=== PATIENT | male | born 1945 | race Two or more races ===

== ENCOUNTER → 2024-12-04 | Outpatient (CLI) | payer MEDICARE, MEDICAID, SELFPAY ==
--- NOTE | 2024-12-04 14:00 | XR_ITS ---
Examination: Abdomen sonogram, complete Date and time of exam: December 04, 2024 1416 hours INDICATIONS: Abdominal pain beginning one month ago. Technique: Multiple real-time grayscale transabdominal sonographic images of the abdomen have been obtained. Findings: 3 mm gallbladder polyp No gallstones The gallbladder is contracted Gallbladder wall 2 mm Common bile duct 0.4 cm Pancreatic head 2.0 cm Aorta not enlarged Liver 13.9 cm smooth contour no focal liver lesions Normal hepatopedal portal venous flow Patent IVC Right kidney 9.9 x 4.9 x 5.8 cm cortex 1.2 cm Left kidney 9.5 x 4.3 x 4.2 cm renal cortex 1.1 cm Mild renal parenchymal scar formation No hydronephrosis Spleen 7.5 cm IMPRESSION: 3 mm gallbladder polyp Contracted gallbladder, recommend repeating the gallbladder portion of this study with fasting Liver normal size no focal liver lesions Mild bilateral renal parenchymal scar formation
== END | disposition home or self-care (01) ==
PROVIDERS: PCP Nurse Practitioner Family; Referring Provider Nurse Practitioner Family; Visit Provider Nurse Practitioner Family
DX: K82.4 Cholesterolosis of gallbladder (principal); K82.8 Other specified diseases of gallbladder; N28.89 Other specified disorders of kidney and ureter
CPT/HCPCS: 76700

== ENCOUNTER 2024-12-24 08:55 | Outpatient (AMB) | payer MEDICARE, MEDICAID, SELFPAY ==
[2024-12-24 09:06] VITALS: BP 124/75; PULSE 69; RESP 18; TEMP 36.7; O2SAT 98; BMI 22.3
--- NOTE | 2024-12-24 09:06 | PD.GSCLVISIT ---
Vital Signs - [facility] 12/24/24 09:06 Height 1.7 m Height Method Stated Weight 64.609 kg Weight Measurement Method Standing Scale BMI 22.3 BP 124/75 Blood Pressure Source Automatic Cuff Blood Pressure Location Left Upper Arm Position Sitting Respiration 18 Pulse 69 Pulse Source Monitor Temp 98.1 F Temp Source Temporal Artery Scan Pulse Oximetry (%) 98 Oxygen Delivery Method Room Air Med/Allergies Allergies & Medications Allergies No Known Allergies Allergy (Verified 12/24/24 09:07) Medication Reconciliation lisinopril 10 mg tablet 10 mg PO QDAY 01/16/24 [History Confirmed 12/24/24] MA Intake Visit Data Collection New Patient or Established: New Patient (never been to [facility]) Seen by Clinical Staff ONLY (RN/MA): No Reason for Visit:: REFERRAL GALLBLADDER Pain Present Currently: No Plug Making Operator Required: Yes PCP or OBGYN visit in last 3 months: Yes Hx Now: No Do You Feel Safe at Home: Yes Authorities Contacted: N/A Smoking Status Smoking Status: Never smoker Immunization / Flu Flu Vaccine in the Last 12 Months: Yes Flu Vaccine Exclusion Criteria: Already Received Past Medical History Social History SMOKING STATUS: Smoking status: Never smoker HPI HPI Narrative 79M referred for gallbladder polyp. Pt states he has had two episodes of severe abdominal pain since Nov; one episode before eating and one after drinking coffee, with severe lower abdominal pain that then radiated upward. He denies any associated nausea, fever or diarrhea. Because the pain was so severe he went to ER and underwent US with findings of a 3mm polyp, no gallstones PMH: HTN, BPH PSHx: Back and hip surgery Meds: No antiplt and anticoagulation Allergies: NKDA Social hx: Nonsmoker Family hx: No known malignancy ROS Review of Systems Systems Reviewed: All systems reviewed, normal except as documented Objective/Exam General General Appearance: alert, cooperative and well groomed Resp Respiratory exam: Absent respiratory distress Abdominal Abdominal exam: Present soft; Absent distention or tenderness Results Abdominal US reviewed: no gallstones, 3mm polyp Assessment & Plan Diagnosis / Problem List (1) Gallbladder polyp: Status: Acute Assessment & Plan: 79M with HTN, BPH presenting with symptomatic gallbladder polyp. I explained that although he does not have stones the polyp could cause symptoms similar to biliary colic, which is consistent with the symptoms he experienced. I explained benefits/risks of surgery including need for conversion to open, bleeding, infection, injury to nearby structures/biliary leak requiring further procedures or surgery which could not be performed here. Pt expressed understanding and agrees to proceed Advanced Care Planning Advance care planning discussed with:: other Office Procedures GNS Level of Care Nursing/Assessment Patient Status: Initial/New Patient Nursing Assessment/Reassesment: Medication Reconciliation, Update PMH in EMR and Vital Signs Coordination of Care: Complex Care and Chronic Disease 1-5, Consent,records obtained, informed consent, Education Simp Pt/Fam, Results/Orders obtained and Staff clarify orders Special Needs: Language special needs New Patient Charge New Patient Point Assignment: [id number] New Patient Point Charge: PRINTER'S DEVIL Level 3 ([id number]) Patient Portal Questionaires Social History Tobacco History Smoking Status: Never smoker Domestic Abuse History Do You Feel Safe at Home: Yes Review of Systems Report any current symptoms Only answer those that you have currently: Past Medical History Past Medical History Have you ever been diagnosed with any of the following:
== END 2024-12-24 09:27 | disposition home or self-care (01) ==
LOC: HODSRG 08:55
PROVIDERS: PCP Nurse Practitioner Family; Referring Provider Nurse Practitioner Family; Supervising Provider Surgery; Visit Provider Surgery
DX: K82.4 Cholesterolosis of gallbladder (principal)
CPT/HCPCS: 99203; G0463

== ENCOUNTER → 2025-01-04 | Outpatient (BNVA) | payer MEDICARE, MEDICAID, SELFPAY | END | disposition home or self-care (01) | PROVIDERS: PCP Nurse Practitioner Family; Referring Provider Nurse Practitioner Family; Visit Provider Urology | DX: N40.1 Benign prostatic hyperplasia with lower urinary tract symptoms (principal); N13.8 Other obstructive and reflux uropathy; N32.81 Overactive bladder; I10 Essential (primary) hypertension | CPT/HCPCS: 81003; 99212; G0463 ==

== ENCOUNTER 2025-01-13 06:50 | Day surgery (SDC) | payer MEDICARE, MEDICAID, SELFPAY ==
--- NOTE | 2025-01-12 06:00 | EKG_ITS ---
[facility] Test Date: 2025-01-12 Pat Name: ROCÍO ROJAS Department: Room: - Gender: Male Rack Puncher: BRENDA : 1945 Requested By: Harley Ro Order Number: [id number] Reading MD: Harley Ro Measurements Intervals [place] Rate: 57 P: 68 LA: 189 QRS: 72 QRSD: 95 T: 79 QT: 421 QTc: 412 Interpretive Statements SINUS BRADYCARDIA No previous ECG available for comparison /store/S0/[id number].pdf
[2025-01-12 07:08] VITALS: BMI 22.2
[2025-01-12 09:21] LABS: Basophils % (Auto) 1 % (0-2.5); Eosinophils # (Auto) 0.2 Thou/mm3 (0.0-0.5); Eosinophils % (Auto) 3 % (0-10); Hematocrit 41.1 % (41.0-53.0); Hemoglobin 13.6 g/dL (13.5-16.0); Immature Granulocytes % (Auto) 1 % (0-0); Immature Granulocytes Auto 0.03 Thou/mm3 (0.00-0.00); Lymphocytes # (Auto) 1.7 Thou/mm3 (1.0-4.8); Lymphocytes % (Auto) 27 % (10-50); Mean Corpuscular HGB Conc 33.1 g/dl (31.0-37.0); Mean Corpuscular Hemoglobin 31.9 pg (25.0-35.0); Mean Corpuscular Volume 96 fL (80-100); Monocytes # (Auto) 0.7 Thou/mm3 (0.0-0.8); Monocytes % (Auto) 10 % (0-12); Neutrophils # (Auto) 3.8 Thou/mm3 (1.8-7.7); Neutrophils % (Auto) 59 % (37-80); Nucleated Red Blood Cell % 0 /100 WBC (0); Partial Thromboplastin Time 24.4 Seconds (22.0-36.0); Platelet Count 201 Thou/mm3 (140-440); Prothrombin Time 10.6 Seconds (9.0-12.2); RDW Standard Deviation 46.5 fL (35.1-43.9); Red Blood Count 4.27 Miln/mm3 (4.50-5.90); White Blood Count 6.4 Thou/mm3 (3.8-10.6)
[2025-01-12 09:27] LABS: Alanine Aminotransferase 18 U/L (10-49); Albumin, Serum 4.6 gm/dL (3.4-4.8); Albumin/Globulin Ratio 1.9 (1.2-2.2); Alkaline Phosphatase 70 U/L (46-116); Anion Gap 5 (7-16); Aspartate Amino Transferase 27 U/L (0-34); BUN/Creatinine Ratio 17 Ratio (12-20); Bilirubin,Total 0.7 mg/dL (0.3-1.2); Blood Urea Nitrogen 20 mg/dL (9-23); Calcium 9.5 mg/dL (8.3-10.6); Calcium (Corrected) 9.5 mg/dL (8.5-10.1); Carbon Dioxide 29.6 mMol/L (20.0-31.0); Chloride 108 mMol/L (98-107); Creatinine (Component) 1.2 mg/dL (0.6-1.3); Globulin 2.4 gm/dL (2.3-3.5); Glucose 92 mg/dL (74-106); Osmolality,Calculated 287 (275-295); Potassium 4.1 mMol/L (3.4-5.1); Sodium 143 mMol/L (136-145); eGFR > 60 See Note
--- NOTE | 2025-01-12 15:02 | SUR.PREOP ---
Cardiac records reviewed with Dr Ro.
[2025-01-13] VITALS (8 sets, daily range): BP systolic 102–127; BP diastolic 41–89; PULSE 61–72; RESP 13–20; TEMP 36.2–37.1; O2SAT 97–100; BMI 21.5
[2025-01-13] MEDS: RINGERS LACTATED 1000 ML 1,000 ML 20 ML IV (07:41)
--- NOTE | 2025-01-13 10:30 | PD.SUROPNT ---
Date of Procedure 01/13/25 Pre Op Diagnosis Symptomatic gallbladder polyp Post Op Diagnosis Same Procedure Laparoscopic cholecystectomy Findings Normal-appearing gallbladder Procedure Description After discussion of risk and benefits, patient was brought to the operating room, SCDs were placed and general anesthesia was induced. He received preoperative antibiotics and was prepped and draped in the usual sterile fashion. After timeout a supraumbilical incision was made and tissues were elevated with towel clamps. A Veress needle was placed through the incision and proper positioning was confirmed with a drop test. 3 additional ports were placed under direct vision, one 12 mm at the epigastrium, one 5 mm right subcostal and one 5 mm right anterior axillary line. Patient was placed in reverse Trendelenburg. The fundus of the gallbladder was grasped and retracted cephalad and the infundibulum was grasped and retracted laterally. The critical view of safety was achieved with blunt dissection and the cystic duct and cystic artery were clipped and transected in the usual fashion. Of note there was a small accessory artery posterior to the cystic artery which was bleeding and was also clipped and transected in the usual fashion. The gallbladder was removed from the gallbladder bed using electrocautery and hemostasis of the gallbladder bed was achieved with electrocautery and reinforced with Surgicel powder. The specimen was removed in an Endo Catch bag via the epigastric port and the epigastric fascia was closed with a 0 Vicryl suture using a Ambrosio-Brianna. Pneumoperitoneum was released and ports were removed under direct vision. Incisions were irrigated and infiltrated with half percent Marcaine for a total of 20 cc. Incisions were closed with 4 Monocryl and reinforced with Dermabond. Patient was extubated and brought to PACU in stable condition Pathology / specimen Other (Gallbladder) Estimated Blood Loss 50 Surgeon Jeri Issa MD Surgical Staff Operation Date: 01/13/25 09:20 <No data on this case meets the specified criteria>
--- NOTE | 2025-01-13 10:33 | ESDS_ITS ---
Planned Discharge Date 01/13/25 DS: Providers Provider Primary care physician: Silvano Lennon([facility])ROBBIE Attending Provider on Admission: Jeri Issa MD Attending Provider on DC: Jeri Issa MD Discharging Provider: Jeri Issa MD Diagnosis Discharge Diagnosis (1) Gallbladder polyp: Status: Acute Problem List Completed Was Problem List Reviewed/Reconciled?: Yes Exam Vital Signs Temp Pulse Resp BP Pulse Ox 98.8 F 72 16 102/70 99 01/13/25 07:32 01/13/25 07:32 01/13/25 07:32 01/13/25 07:32 01/13/25 07:32 Discharge Plan Plan Patient Disposition: HOME (Self Care) Prescriptions/Referrals Prescriptions/Med Rec: New oxycodone-acetaminophen [Percocet] 5-325 mg tablet 1 tab PO Q6H MDD 6 tabs PRN (Reason: pain) Qty: 10 0RF No Action lisinopril 10 mg tablet 10 mg PO QDAY tamsulosin 0.4 mg capsule 0.8 mg PO QHS finasteride 5 mg tablet 5 mg PO QDAY oxybutynin chloride 10 mg tablet extended release 24hr 10 mg PO QDAY chlorthalidone 50 mg tablet 50 mg PO QDAY Referrals: Jeri Issa MD [Physician] - (You will receive a phone call to confirm a follow-up appointment with me in 2 weeks) [facility]Silvano NP [Primary Care Provider] - Patient/Caregiver Discharge Instructions Other Discharge Activity Instructions:: Avoid lifting objects greater than 10 pounds for 6 weeks You may resume showering in 2 days, on 01/15 Your stitches have skin glue on them which will fall off on its own and does not need to be replaced Your stitches will not need to be removed If you develop worsening pain, nausea/vomiting, fever or jaundice please seek care in ER Education Materials: Cholecystectomy Laparoscopic Dc, Preventing Surgical Site Infections Print Language: Latvian Stand Alone Forms: Matilde Award Info., Patient Portal Info Letter Discharge Order Discharge Orders: Discharge (Routine); Ordered 01/13/25 Ordered By: Jeri Issa Results Results: Laboratory Laboratory results: results reviewed Results: Imaging US - abdomen: report reviewed Procedures Procedure Date 01/13/25 Procedures Laparoscopic cholecystectomy
--- NOTE | 2025-01-13 11:02 | SUR.PHASEI ---
1102: Pt. AAOx4, vitals stable, breathing unlabored, no complaint of pain or nasuea, x4 dermabond sites to ABD CDI, no active bleed noted, report received from Jese HINDS and Rubin JOHNSON
[2025-01-13] MEDS: fentaNYL CIT INJ 50 mCg/ML AMP 2ML IV ×2 (11:11→11:39)
--- NOTE | 2025-01-13 12:02 | SUR.PHASEII ---
1202: Pt. AAOx4, vitals stable, breathing unlabored, no complaint of pain or nausea, x4 dermabond sites to ABD CDI, no active bleed noted, pt. tolerated sips of water well, pt. ambulated to wheelchair with steady gait and no assist, no complications. Gave discharge instructions to the pt. and his ride using sales office manager Cira [id number] Moos, both verbalized understanding and had no further questions. Pt. left with all personal belongings.
== END 2025-01-13 12:02 | disposition home or self-care (01) ==
PROVIDERS: Anesthesiology; PCP Nurse Practitioner Family; Referring Provider Surgery; Visit Provider Surgery
PROC: 0FT44ZZ Resection of Gallbladder, Percutaneous Endoscopic Approach (ICD-10-PCS; CPT 47562; principal; 2025-01-13 09:20)
DX: K82.4 Cholesterolosis of gallbladder (principal); Z01.810 Encounter for preprocedural cardiovascular examination
CPT/HCPCS: 47562; 36415; 80053; 85025; 85610; 85730; 93005; A4217; A4649; J0131; J0694; J1100; J2405; J2704; J3010; J3490; J7120

== ENCOUNTER 2025-02-01 10:54 | Outpatient (AMB) | payer MEDICARE, MEDICAID, SELFPAY ==
[2025-02-01 11:02] VITALS: BP 134/76; PULSE 75; RESP 19; TEMP 36.3; O2SAT 98; BMI 21.5
--- NOTE | 2025-02-01 11:02 | GSCOFFNT_ITS ---
Vital Signs - [facility] 02/01/25 11:02 Height 1.7 m Height Method Stated Weight 62.397 kg Weight Measurement Method Standing Scale BMI 21.5 BP 134/76 H Blood Pressure Source Automatic Cuff Blood Pressure Location Left Upper Arm Position Sitting Respiration 19 Pulse 75 Pulse Source Monitor Temp 97.4 F Temp Source Temporal Artery Scan Pulse Oximetry (%) 98 Oxygen Delivery Method Room Air Med/Allergies Allergies & Medications Allergies No Known Allergies Allergy (Verified 02/01/25 11:17) Medication Reconciliation lisinopril 10 mg tablet 10 mg PO QDAY 01/16/24 [History Confirmed 02/01/25] finasteride 5 mg tablet 5 mg PO QDAY 01/04/25 [History Confirmed 02/01/25] oxybutynin chloride 10 mg tablet,extended release 24 hr 10 mg PO QDAY 01/04/25 [History Confirmed 02/01/25] tamsulosin 0.4 mg capsule 0.8 mg PO QHS 01/04/25 [History Confirmed 02/01/25] chlorthalidone 50 mg tablet 50 mg PO QDAY 01/12/25 [History Confirmed 02/01/25] oxycodone-acetaminophen 5 mg-325 mg tablet (Percocet) 1 tab PO Q6H PRN pain #10 tabs 01/13/25 [Rx Confirmed 02/01/25] MA Intake Visit Data Collection New Patient or Established: Established Patient (seen at [facility] within 3 years) Seen by Clinical Staff ONLY (RN/MA): No Reason for Visit:: FOLLOW UP LAB [place] Pain Present Currently: No Fruit Grader Operator Required: Yes PCP or OBGYN visit in last 3 months: Yes Hx Now: No Do You Feel Safe at Home: Yes Authorities Contacted: N/A Smoking Status Smoking Status: Never smoker Immunization / Flu Flu Vaccine in the Last 12 Months: No Flu Vaccine Exclusion Criteria: No Exclusion Criteria Past Medical History Past Medical History NEUROLOGIC: Negative Neurological Disorders or Seizures CARDIAC: Positive Cardiac Disorders and Hypertension; Negative Congestive Heart Failure RESPIRATORY: Negative Chronic Obstructive Pulmonary Disease (COPD) GASTROINTESTINAL: Positive Gastrointestinal Disorders and Gall Bladder Disease; Negative Hepatitis GENITOURINARY: Positive Genitourinary Disorders, Kidney Stones and Benign Prostatic Hyperplasia; Negative Renal Disease MUSCULOSKELETAL: Positive Arthritis and Degenerative Disk Disease ENDOCRINE: Negative Endocrine Disorders, Diabetes Mellitus Type 1 or Diabetes Mellitus Type 2 HEMATOLOGIC: Negative Blood Disorders OTHER HISTORY: Positive Hospitalization (surgery); Negative Autoimmune Disease, Shingles, Blood Transfusions, Blood Transfusion Reaction, Anesthesia Reactions or Cancer Family History FAMILY HISTORY: Positive Family Cancer; Negative Family Psychiatric Problems, Family Respiratory Disorders, Family Cardiac Disorders, Family Gastrointestinal Problems, Family Surgery or Family Anesthesia Reaction Social History SMOKING STATUS: Smoking status: Never smoker ALCOHOL: Alcohol Intake: Current HOUSING: Housing: House HPI HPI Narrative Spoke to pt with in-person nursing agency manager 80M who presented with a symptomatic gallbladder polyp s/p lap cholecystectomy 01/13 here for planned follow up. Pt states he feels very well, he only needed 2 tabs of percocet after surgery and is now not taking any medications. He is eating well, having mild diarrhea which is not bothersome and denies any fever or jaundice ROS Review of Systems Systems Reviewed: All systems reviewed, normal except as documented Objective/Exam General General Appearance: alert, cooperative and well groomed Resp Respiratory exam: Absent respiratory distress Abdominal Abdominal exam: Present soft and incision (c/d/i, no erythema, no fluctuance or tenderness); Absent distention or tenderness Results Pathology of gallbladder and polyp reviewed Assessment & Plan Diagnosis / Problem List (1) Gallbladder polyp: Status: Acute Assessment & Plan: 80M s/p lap cholecystectomy 01/13 for gallbladder polyp which was benign, recovering well Plan: Avoid lifting objects >10lbs for 6 weeks Follow up as needed Advanced Care Planning Advance care planning discussed with:: patient Office Procedures GNS Level of Care Nursing/Assessment Patient Status: Established Patient Nursing Assessment/Reassesment: Medication Reconciliation, Update PMH in EMR and Vital Signs Coordination of Care: Complex Care and Chronic Disease 1-5, Consent,records obtained, informed consent, Education Simp Pt/Fam, Results/Orders obtained and Staff clarify orders Special Needs: Language special needs Established Patient Charge Established Patient Point Assignment: 90 Established Patient Point Charge: EP Level 3 (80-115) Patient Portal Questionaires Social History Living Situation History Housing: House Tobacco History Smoking Status: Never smoker Alcohol History Alcohol Intake: Current Domestic Abuse History Do You Feel Safe at Home: Yes Review of Systems Report any current symptoms Only answer those that you have currently: Past Medical History Past Medical History Have you ever been diagnosed with any of the following: Neurological Problems Seizures: No Cardiology Problems Congestive Heart Failure: No Hypertension: Yes Respiratory Problems Chronic Obstructive Pulmonary Disease (COPD): No Stomache/Intestinal Problems Hepatitis: No Gall Bladder Disease: Yes Genital/Urinary Problems Renal Disease: No Kidney Stones: Yes Benign Prostatic Hyperplasia: Yes Musculoskeletal Problems Arthritis: Yes Degenerative Disk Disease: Yes Endocrine Problems Diabetes Mellitus Type 1: No Diabetes Mellitus Type 2: No Other Problems Hospitalization: Yes (surgery) Autoimmune Disease: No Shingles: No Blood Transfusions: No Blood Transfusion Reaction: No Anesthesia Reactions: No Cancer: No
== END 2025-02-01 11:16 | disposition home or self-care (01) ==
LOC: HODSRG 10:54
PROVIDERS: PCP Nurse Practitioner Family; Referring Provider Nurse Practitioner Family; Supervising Provider Surgery; Visit Provider Surgery
DX: K82.4 Cholesterolosis of gallbladder (principal); Z90.49 Acquired absence of other specified parts of digestive tract
CPT/HCPCS: 99213; G0463

== ENCOUNTER → 2025-06-28 | Outpatient (CLI) | payer MEDICARE, MEDICAID, SELFPAY ==
[2025-06-28 11:16] LABS: Prostate Specific Antigen 1.45 ng/mL (0-4.00)
== END | disposition home or self-care (01) ==
LOC: COPL 10:04
PROVIDERS: PCP Nurse Practitioner Family; Referring Provider Urology; Visit Provider Urology
DX: N40.1 Benign prostatic hyperplasia with lower urinary tract symptoms (principal)
CPT/HCPCS: 36415; 84153

== ENCOUNTER → 2025-07-05 | Outpatient (BNVA) | payer MEDICARE, MEDICAID, SELFPAY | END | disposition home or self-care (01) | PROVIDERS: PCP Nurse Practitioner Family; Referring Provider Nurse Practitioner Family; Visit Provider Urology | DX: N40.1 Benign prostatic hyperplasia with lower urinary tract symptoms (principal); N13.8 Other obstructive and reflux uropathy; R39.15 Urgency of urination; R35.0 Frequency of micturition; I10 Essential (primary) hypertension | CPT/HCPCS: 81003; 99212; 99213; G0463 ==